=== PATIENT | male | born 1995 | race Caucasian/White ===

== ENCOUNTER 2017-04-16 01:00 | Inpatient (IN) | payer OTHER ==
[~2017-04-16] VITALS: Ht 185.4 cm; Wt 99.6 kg
[~2017-04-16 01:00] MED LIST: INSPMPHMLG
[2017-04-16] MEDS ORDERED: SODIUM CHLORIDE 0.9% 1000ML 1,000 ML IV STA ×2 (01:04→02:28)
--- NOTE | 2017-04-16 01:14 | EMERGENCY ROOM VISIT NOTE ---
History Report prepared by Scribe: Mecca Lewis Under the Supervision of: Dr. Qing Long D.O. First contact with patient: 01:00 Stated Complaint: ALCOHOL History of Present Illness The patient is a 21 year old male who presents to the Emergency Room with complaints of an episode of alcohol overdose occurring just prior to arrival. Per EMS, the patient was found walking with friends who were holding him up. The patient has an insulin pump and his sugar level in the ambulance was 348. Source of History: patient History Limited By: intoxication Onset: just prior to arrival Position: other (generalized) Quality: other (alcohol overdose) Timing: other (episode) Review of Systems ROS limited secondary to intoxication. Past Medical & Surgical Medical Problems: (1) Diabetes Social History Smoking Status: Never Smoker Alcohol Use: occasionally Occupation Status: [employer] student Current/Historical Medications Unable to Obtain Active Prescriptions or Reported Meds Allergies Coded Allergies: No Known Allergies (Unverified , 03/24/16) Physical Exam Vital Signs Date Time Temp Pulse Resp B/P (MAP) Pulse Ox O2 Delivery O2 Flow Rate FiO2 04/16/17 02:58 74 120/63 95 Room Air 04/16/17 01:21 Room Air 04/16/17 01:10 36.8 109 18 153/109 96 Room Air 04/16/17 01:10 99 Physical Exam General: Unresponsive, smells of alcohol and tobacco. HEENT: Head - normocephalic and atraumatic Pupils are 5 mm equal, round, and sluggishly reactive to light. Extraocular eye muscles are intact, and sclera are anicteric. Nose - moist nasal mucosa without discharge. Mouth - moist buccal mucosa. Oropharynx is nonerythematous and there is no tonsillar exudate or edema noted. Neck: Supple; no JVD, nuchal rigidity, cervical lymphadenopathy. Heart: Regular rate and rhythm. There is a normal S1 and S2 with no murmurs, clicks, or gallops appreciated. Lungs: Clear to auscultation bilaterally with no wheezes, rales, or rhonchi. Abdomen: Soft, completely nontender, nondistended, with good bowel sounds. There are no palpable pulsatile masses or hepatosplenomegaly. There is no guarding, rigidity, or rebound noted. Insulin pump in right lower quadrant. Extremities: No evidence of cyanosis, clubbing, or edema. There are easily palpable peripheral pulses. Skin: warm and dry with good turgor and no rashes. Medical Decision & Procedures Laboratory Results 04/16/17 01:09 04/16/17 01:09 Test 04/16/17 01:04 04/16/17 01:09 Red Blood Count 5.05 M/uL (4.7-6.1) Mean Corpuscular Volume 87.1 fL (80-100) Mean Corpuscular Hemoglobin 31.5 pg (25-34) Mean Corpuscular Hemoglobin Concent 36.1 g/dl (32-36) RDW Standard Deviation 39.0 fL (36.4-46.3) RDW Coefficient of Variation 12.2 % (11.5-14.5) Mean Platelet Volume 9.4 fL (7.4-10.4) Anion Gap 12.0 mmol/L (3-11) Est Creatinine Clear Calc Drug Dose 152.3 ml/min Estimated GFR () 124.8 Estimated GFR (Non- 107.7 BUN/Creatinine Ratio 7.9 (10-20) Calcium Level 8.2 mg/dl (8.5-10.1) Total Bilirubin 0.3 mg/dl (0.2-1) Direct Bilirubin < 0.1 mg/dl (0-0.2) Aspartate Amino Transf (AST/SGOT) 18 U/L (15-37) Alanine Aminotransferase (ALT/SGPT) 24 U/L (12-78) Alkaline Phosphatase 111 U/L (45-117) Total Protein 8.1 gm/dl (6.4-8.2) Albumin 4.3 gm/dl (3.4-5.0) Beta-Hydroxybutyric Acid 1.98 mg/dL (0.2-2.81) Ethyl Alcohol mg/dL 437.0 mg/dl (0-3) Laboratory results per my review. Medications Administered Medications (Trade) Dose Ordered Sig/Nikhil Route Start Time Stop Time Status Last Admin Dose Admin Sodium Chloride 1,000 ml @ 999 mls/hr Q1H1M STAT IV 04/16/17 01:04 04/16/17 02:04 DC 04/16/17 01:17 999 MLS/HR Sodium Chloride 1,000 ml @ 250 mls/hr Q4H STAT IV 04/16/17 02:28 04/16/17 05:29 DC 04/16/17 03:04 250 MLS/HR Procedure NSS IV ED Course 0100: Past medical records reviewed. The patient was evaluated in room A11B. A complete history and physical exam was performed. An IV lock was initiated and labs were drawn as above. The patient was placed in the prone position to avoid aspiration. He was observing the therapeutic recreation specialist and pulse oximeter. 0104: Sodium Chloride 1000 ml @ 999 mls/hr IV. 0228: Sodium Chloride 1000 ml @ 250 mls/hr IV. 0253: The patient was up to the bathroom is now back asleep. 0300: Discussed the patient's case with Dr. Hickman-[facility]. The patient will be evaluated for further management. Medical Decision The patient is a 21 year old male who presents to the ED with an alcohol overdose. Differential diagnosis includes alcohol overdose, drug intoxication, hypoglycemia, head injury, DKA. Lab results show: alcohol 437, glucose 394. This is a 21-year-old male patient was brought emergency department after consuming too much alcohol. He has history of diabetes and is on an insulin pump. The patient appears moderately obtunded here in the emergency department. His blood sugar is high. I am concerned as to how high the patient 's blood alcohol level is. He is receiving IV crystalloid therapy at this time. I discussed the case with the [facility] hospitalist and they will evaluate for further management. Medication Reconcilliation Current Medication List: was personally reviewed by me Blood Pressure Screening Patient's blood pressure: Normal blood pressure Consults Time Called: 030 Consulting Physician: Dr. Hickman Returned Call: 0300 Discussed the patient's case. The patient will be evaluated for further management. Impression Primary Impression: Alcohol overdose Additional Impression: Diabetes mellitus with hyperglycemia Scribe Attestation The scribe's documentation has been prepared under my direction and personally reviewed by me in its entirety. I confirm that the note above accurately reflects all work, treatment, procedures, and medical decision making performed by me. Departure Information Dispostion Being Evaluated By Hospitalist Prescriptions Unable to Obtain Active Prescriptions or Reported Meds Referrals [facility] (PCP) Problem Qualifiers Primary Impression: Alcohol overdose Encounter type: initial encounter Injury intent: accidental or unintentional Qualified Codes: T51.91XA - Toxic effect of unspecified alcohol , accidental (unintentional), initial encounter Additional Impression: Diabetes mellitus with hyperglycemia Diabetes mellitus type: type 1 Qualified Codes: E10.65 - Type 1 diabetes mellitus with hyperglycemia
[2017-04-16 01:22] LABS: MEAN CELL VOLUME 87.1 fL (80-100); MEAN CORPUSCULAR HEMOGLOBIN 31.5 pg (25-34); MEAN CORPUSCULAR HGB CONC 36.1 g/dl (32-36); MEAN PLATELET VOLUME 9.4 fL (7.4-10.4); PLATELET COUNT 252 K/uL (130-400); RED BLOOD COUNT 5.05 M/uL (4.7-6.1); WHITE BLOOD COUNT 7.82 K/uL (4.8-10.8)
[2017-04-16 02:00] LABS: ALKALINE PHOSPHATASE 111 U/L (45-117); ALT/SGPT 24 U/L (12-78); AST/SGOT 18 U/L (15-37); BLOOD UREA NITROGEN 8 mg/dl (7-18); BUN/CREATININE RATIO 7.9 (10-20); CALCIUM 8.2 mg/dl (8.5-10.1); CARBON DIOXIDE 23 mmol/L (21-32); CHLORIDE 102 mmol/L (98-107); CREATININE 0.99 mg/dl (0.60-1.40); GLUCOSE 394 mg/dl (70-99); POTASSIUM 3.6 mmol/L (3.5-5.1); SODIUM 137 mmol/L (136-145)
[2017-04-16 02:21] LABS: BETA-HYDROXYBUTYRATE 1.98 mg/dL (0.2-2.81)
[2017-04-16] MEDS ORDERED: MULTI-VITAMIN INFUSION INJ 10 ML, THIAMINE HCL INJ 100 MG, FoLIC ACID INJ 1 MG in SODIU... IV STA (03:20)
--- NOTE | 2017-04-16 03:23 | History and Physical ---
History & Physical Date & Time of Service: Apr 16, 2017 at 03:21 Chief Complaint: Alcohol Primary Care Physician: No Doctor, Assigned History of Present Illness Source: EMS 21 year-old male with past medical history of type 1 diabetes was brought to the ER with alcohol overdose. Per ER notes, he was found to have an elevated blood sugar of 348 in the ambulance. No other history obtainable from patient Past Medical/Surgical History Medical Problems: (1) Diabetes Status: Chronic Social History Smoking Status: Never Smoker Occupational Status: [employer] student Allergies Coded Allergies: No Known Allergies (Unverified , 03/24/16) Home Medications Unable to Obtain Active Prescriptions or Reported Meds Review of Systems Unable to obtain Physical Exam Vital Signs Date Time Temp Pulse Resp B/P (MAP) Pulse Ox O2 Delivery O2 Flow Rate FiO2 04/16/17 02:58 74 120/63 95 Room Air 04/16/17 01:21 Room Air 04/16/17 01:10 36.8 109 18 153/109 96 Room Air 04/16/17 01:10 99 General Appearance: WD/WN Respiratory/Chest: lungs clear Cardiovascular: + tachycardia Abdomen/GI: soft Neurologic/Psych: + pertinent finding (very drowsy but responded to name) Diagnostics Laboratory Results Results Past 24 Hours Test 04/16/17 01:04 04/16/17 01:09 04/16/17 01:20 04/16/17 02:21 Range/Units White Blood Count 7.82 4.8-10.8 K/uL Red Blood Count 5.05 4.7-6.1 M/uL Hemoglobin 15.9 14.0-18.0 g/dL Hematocrit 44.0 42-52 % Mean Corpuscular Volume 87.1 80-100 fL Mean Corpuscular Hemoglobin 31.5 25-34 pg Mean Corpuscular Hemoglobin Concent 36.1 32-36 g/dl RDW Standard Deviation 39.0 36.4-46.3 fL RDW Coefficient of Variation 12.2 11.5-14.5 % Platelet Count 252 130-400 K/uL Mean Platelet Volume 9.4 7.4-10.4 fL Sodium Level 137 136-145 mmol/L Potassium Level 3.6 3.5-5.1 mmol/L Chloride Level 102 98-107 mmol/L Carbon Dioxide Level 23 21-32 mmol/L Anion Gap 12.0 3-11 mmol/L Blood Urea Nitrogen 8 7-18 mg/dl Creatinine 0.99 0.60-1.40 mg/dl Est Creatinine Clear Calc Drug Dose 152.3 ml/min Estimated GFR () 124.8 Estimated GFR (Non- 107.7 BUN/Creatinine Ratio 7.9 10-20 Random Glucose 394 70-99 mg/dl Calcium Level 8.2 8.5-10.1 mg/dl Total Bilirubin 0.3 0.2-1 mg/dl Direct Bilirubin < 0.1 0-0.2 mg/dl Aspartate Amino Transf (AST/SGOT) 18 15-37 U/L Alanine Aminotransferase (ALT/SGPT) 24 12-78 U/L Alkaline Phosphatase 111 45-117 U/L Total Protein 8.1 6.4-8.2 gm/dl Albumin 4.3 3.4-5.0 gm/dl Beta-Hydroxybutyric Acid 1.98 0.2-2.81 mg/dL Ethyl Alcohol mg/dL 437.0 0-3 mg/dl Bedside Glucose 339 275 70-99 mg/dl Impression Assessment and Plan 21-year-old with a past medical history of type 1 diabetes presented to the ER with alcohol overdose and an elevated blood sugar of 348 in the ambulance Hyperglycemia with no ketoacidosis - Blood sugar on arrival 394 - History of type 1 diabetes on an insulin pump - Pump has currently been turned off and blood sugars have decreased to 275 - Check blood sugar every hour Alcohol overdose: - Blood alcohol level at 437 - Hydration with Banana bag - Alcohol withdrawal protocol in place - Fall/aspiration/seizure precautions DVT prophylaxis: SCDs Full code Disposition: Admitted to telemetry Resident Physician Supervision Note: I was present with Dr. Corcoran during the history and exam. I discussed the case with the resident and agree with the findings and plan as documented in the note. Any exceptions or clarifications are listed here: 21 y/o M Hx DMI Presents via friends after binge drinking - poorly responsive on admission with an impressively high ETOH level and hyperglycemia as well. OE Poorly responsive S1,2 R CTAB NT, ND No CCE P: Assigned to telemetry and placed on aggressive IVF Has insulin pump which has been disabled Frequent POCs requested with SS coverage Pt is unlikely to go through withdrawal - will assess as he wakes up Documented By: Darrell Hickman Level of Care Telemetry Resuscitation Status FULL RESUSCITATION VTE Prophylaxis VTE Risk Assessment Done? Y/N: Yes Risk Level: Moderate Given or contraindicated: SCD's Resident Tracking Resident Involvement: Resident Care Provided Care Provided: Adult Hospital Medicine
[2017-04-16 04:10] VITALS: BP 119/75; PULSE 83; TEMP 36.5; O2SAT 100; Ht 185.4 cm; Wt 99.6 kg
[2017-04-16] MEDS ORDERED: INSULIN ASPART 100 UNITS/ML 3 ML PEN SC SCH ×2 (06:15→08:30)
[2017-04-16] MEDS ORDERED: PHARMACY GLYCEMIC MGMT CONSULT PRN (06:15)
[2017-04-16] MEDS ORDERED: INSULIN GLARGINE SOLOSTAR 100 UNITS/ML 3 ML PEN SC ONE (06:15)
[2017-04-16] MEDS ORDERED: GLUCOSE 10 TABS/TUBE PO PRN (06:15)
[2017-04-16] MEDS ORDERED: GLUCOSE 40% GEL 15 GM TUBE PO PRN (06:15)
[2017-04-16] MEDS ORDERED: GLUCAGON FOR INJ 1 MG VIAL SQ PRN (06:15)
[2017-04-16] MEDS ORDERED: DEXTROSE 50% 50 ML SYR IV PRN (06:15)
[2017-04-16 07:50] VITALS: BP 151/71; PULSE 100; TEMP 36.5; O2SAT 96
[2017-04-16 08:00] VITALS: O2SAT 96
[2017-04-16] MEDS ORDERED: INFLUENZA VIRUS QUAD VACCINE 0.5 ML SYR IM. ONE (08:00)
[2017-04-16] MEDS ORDERED: PNEUMOCOCCAL ADMINISTRATION CHARGE ONE (08:00)
[2017-04-16] MEDS ORDERED: INFLUENZA ADMINISTRATION CHARGE ONE (08:00)
[2017-04-16] MEDS ORDERED: PNEUMOCOCCAL POLYSACCHARIDES 25 MCG/0.5 ML VIAL/SYR IM. ONE (08:00)
[2017-04-16] MEDS ORDERED: INSULIN HUMAN LISPRO (humaLOG) 100 UNITS/ML VIAL SC PRN (09:15)
[2017-04-16 09:51] LABS: BUN/CREATININE RATIO 7.8 (10-20); CALCIUM 7.9 mg/dl (8.5-10.1); CREATININE 0.87 mg/dl (0.60-1.40); POTASSIUM 3.7 mmol/L (3.5-5.1)
[2017-04-16 09:54] LABS: ALB/GLOB RATIO 1.2 (0.9-2)
--- NOTE | 2017-04-16 09:54 | Pharmacy Progress Note ---
Glycemic Control Intl Consult Date of Service Apr 16, 2017. Scope Glycemic Pharmacist consulted by Dr Raya on 04/16/17 for glycemic control and to write orders per [facility] inpatient glycemic control protocol Objective Weight (Kilograms): 99.600 Accuchecks BSG (last 24hrs): Test 04/16/17 01:09 04/16/17 01:20 04/16/17 02:21 04/16/17 03:46 Random Glucose 394 mg/dl (70-99) Bedside Glucose 339 mg/dl (70-99) 275 mg/dl (70-99) 232 mg/dl (70-99) Test 04/16/17 04:46 04/16/17 05:46 04/16/17 06:57 04/16/17 09:10 Bedside Glucose 287 mg/dl (70-99) 291 mg/dl (70-99) 304 mg/dl (70-99) Laboratory Data (last 24hrs) Test 04/16/17 01:09 04/16/17 09:10 Anion Gap 12.0 mmol/L BUN/Creatinine Ratio 7.9 Blood Urea Nitrogen 8 mg/dl Creatinine 0.99 mg/dl Potassium Level 3.6 mmol/L Sodium Level 137 mmol/L White Blood Count 7.82 K/uL HbA1c 6.4% in November 2016 per patient Recent Pertinent Medications Outpatient Anti-diabetic Regimen: * Humalog insulin pump * Basal rates: varies, runs 1.5-2 units/hr * Sensitivity Factor: 30 * Carb Ratio 1 unit for every 6g CHO Assessment & Plan ASSESSMENT: * 21yo T1DM male with excellent outpatient control per reported A1c. Pt is maintained on Humalog insulin pump * Pt with severe hyperglycemia on admission secondary to etOH * Alcohol blocks the production of glucose in the liver - rebound HYPOglycemia is typical hours after alcohol consumption. * Pt was given one time dose of Lantus and NovoLog in ER for severe hyperglycemia. It was reported that his pump was turned off. * I interviewed the patient this morning - his pump is indeed still on and functioning. * Pt knows how to set a temporary basal to offset additional basal given SQ * Pt desires to manage his own BSGs with his insulin pump. Pt verbalized that he felt well enough to manage his own pump. He will keep track of his BSGs and boluses on flowsheet. Understands that if he experiences frequent hypo or hyperglycemia we will change to SQ basal bolus insulin regimen. * Pt last changed his pump site 04/13/17 PM. Site is patent and in tact. Site due to be changed today - he will do this after discharge * Pt understands that pharmacy does not stock any pump supplies other than Humalog to refill his pump if necessary. * Pt verbalized understanding of the above. PLAN: * Pt to manage own BSGs with personal insulin pump per outpatient settings. * Pharmacy will continue to monitor patient daily * Pharmacy may suggest transitioning to SQ basal bolus regimen for frequent hyper/hypoglycemia. * Please note that the plan above was derived based on current level of insulin resistance and hospital stress. These recommendations are appropriate for inpatient admission only. Plan of care upon discharge will need to be reassessed to avoid potential outpatient hypo/hyperglycemia. Thank you.
[2017-04-16 11:52] VITALS: BP 122/74; PULSE 95; TEMP 36.7; O2SAT 94
--- NOTE | 2017-04-16 12:21 | Discharge Instructions ---
Discharge Instructions Date of Service Apr 16, 2017. Admission Reason for Admission: Alcohol Overdose, Diabetes Mellitus With Discharge Discharge Diagnosis / Problem: Acute alcohol intoxication, Type I diabetes mellitus Discharge Goals Goal(s): Improve disease control, Screening, Prevent Disease Progression, Specific goals Activity Recommendations Activity Limitations: resume your previous activity . Instructions / Follow-Up Instructions / Follow-Up Sergio Vazquez came to the ED with acute alcohol intoxication. You were unconscious and had a blood alcohol level of 437 mg/dl. This level is very dangerous. Some patients at this level experience coma and respiratory depression, and is possible. You were put on a telemetry unit, a detention unit where you heart rhythm could be closely monitored. You were also given IV fluids. Blood levels this high are even more dangerous for you, as you are a type I diabetic. You body is not able to compensate while you are acutely intoxicated, putting you at risk for extremely high blood sugars. Your blood glucose was 394 when you arrived to the ED. This is very serious. We advise you to discuss with your family physician regarding this incident. If you believe you are having difficulties controlling your drinking, there are many resources available. [facility] have resources through the Counseling and Psychological Services (CAPS) CAPS (Mon-Mon, 8am-5pm): [facility] Crisis Line (09/01): Crisis Text Line (09/01): txt "LIONS" to [phone] Current Hospital Diet Patient's current hospital diet: Diabetes Type 2 Diet Discharge Diet Recommended Diet: Diabetes Type 1 Diet Pending Studies Studies pending at discharge: no Medical Emergencies . Who to Call and When: Medical Emergencies: If at any time you feel your situation is an emergency, please call 911 immediately. . Non-Emergent Contact Non-Emergency issues call your: Primary Care Provider . . "Provider Documentation" section prepared by Ivan Cameron. . VTE Core Measure Inpt VTE Proph given/why not?: SCD's
[2017-04-16 13:11] VITALS: BP 120/77; PULSE 88; TEMP 36.8; O2SAT 98
--- NOTE | 2017-04-16 18:07 | Discharge Summary ---
Discharge Summary Date of Service Apr 16, 2017. Discharge Summary Admission Date: Apr 16, 2017 at 03:18 Discharge Date: Apr 16, 2017 Principal Diagnosis: acute alcohol intoxication Problems/Secondary Diagnoses: Hyperglycemia Medication Reconciliation Medication Profile: Unable to Obtain Active Prescriptions or Reported Meds Discharge Exam Review of Systems: Constitutional: No fever, No chills, No sweats Respiratory: No cough, No sputum, No wheezing, No shortness of breath, No dyspnea on exertion Cardiovascular: No chest pain, No orthopnea Abdomen: No pain, No nausea, No vomiting Physical Exam: General Appearance: WD/WN, no apparent distress Neck: supple, no adenopathy, thyroid normal, no JVD Respiratory/Chest: chest non-tender, lungs clear, normal breath sounds, no respiratory distress, no accessory muscle use Cardiovascular: regular rate, rhythm, no edema, no gallop, no JVD, no murmur Abdomen / GI: normal bowel sounds, non tender, soft, no organomegaly, no pulsatile mass Neurologic/Psychiatric: alert, normal mood/affect, oriented x 3 Skin: normal color, warm/dry, no rash Hospital Course 21-year-old with a past medical history of type 1 diabetes presented to the ER with alcohol overdose. ETOH level of 437 and an elevated blood sugar of 348 in the ambulance. Pt was admitted and observed on telemetry. Pt was seen by pharmacy for a glycemic consult. Pt was given one time dose of Lantus and NovoLog in ER for severe hyperglycemia. When the patient woke up he desired to manage blood sugar with his insulin pump. Pt verbalized that he felt well enough to manage his own pump. Pt was observed in the morning and was discharged at lunch time. Pts glucose was 172 prior to discharge. Pt was alert and oriented x3 at the time of discharge. Prior to discharge, discussed with the patient the seriousness of of his presentation to the ED and offered in the discharge instructions resources for alcohol counseling. The patient should follow up with his PCP. SEE PROBLEM LIST FROM ADMISSION BELOW FOR MORE DETAILS: Hyperglycemia with no ketoacidosis - Blood sugar on arrival 394 - History of type 1 diabetes on an insulin pump - Pump has currently been turned off and blood sugars have decreased to 275 - Check blood sugar every hour Alcohol overdose: - Blood alcohol level at 437 - Hydration with Banana bag - Alcohol withdrawal protocol in place - Fall/aspiration/seizure precautions DVT prophylaxis: SCDs Full code Disposition: Admitted to telemetry Total Time Spent: Less than 30 minutes This includes examination of the patient, discharge planning, medication reconciliation, and communication with other providers. Discharge Instructions Please refer to the electronic Patient Visit Report (Discharge Instructions) for additional information. Additional Copies To [facility]
== END 2017-04-16 13:10 | disposition home or self-care (01) | DRG 918 ==
LOC: EDBD 01:00 → C.EDA 01:02 → C.2T 03:18 → ENRESERV 03:24
PROVIDERS: ADMIT Family Medicine; ATTEND Hospitalist
DX: T51.0X1A Toxic effect of ethanol, accidental (unintentional), initial encounter (principal); E10.65 Type 1 diabetes mellitus with hyperglycemia; F10.129 Alcohol abuse with intoxication, unspecified; Z96.41 Presence of insulin pump (external) (internal); Y90.9 Presence of alcohol in blood, level not specified